=== PATIENT | female | born 1955 | race Caucasian/White ===

== ENCOUNTER 2018-01-23 15:40 | Emergency (ER) | payer OTHER ==
[~2018-01-23] VITALS: Ht 157.5 cm; Wt 69.6 kg
[2018-01-23] MEDS ORDERED: KEFLEX500 MG PO (17:39)
[2018-01-23] MEDS ORDERED: MOTRIN600 MG PO (18:21)
[2018-01-23 18:42] VITALS: BP 144/65
== END 2018-01-23 18:43 | disposition home or self-care (01) ==
LOC: EME 15:40
DX: L03.116 Cellulitis of left lower limb (principal); L03.115 Cellulitis of right lower limb
CPT/HCPCS: 99281; 99284